=== PATIENT | female | born 1970 | race Two or more races ===

== ENCOUNTER 2023-07-30 10:47 | Emergency (ER) | payer SELFPAY ==
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
[2023-07-30 11:01] VITALS: BP 185/111; PULSE 108; O2SAT 98
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
[2023-07-30 11:10] VITALS: BP 199/116; PULSE 109; RESP 18; TEMP 37.1; O2SAT 95; BMI 54.3
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
--- NOTE | 2023-07-30 12:00 | PC.NURSE ---
back from CT- blood drawn. repeating BP. aox4. no distress noted. +CMS. talks well. collared.
[2023-07-30 12:02] LABS: MANUAL DIFF FLAG NO
[2023-07-30 12:04] LABS: Basophils Absolute Auto 0.1 X10*3/uL (0.0-0.2); Basophils Percent Auto 0.6 % (0-2); Eosinophils Percent Auto 0.5 % (0-4); Hematocrit 42.9 % (37.0-47.0); Hemoglobin 13.9 g/dl (12.0-16.0); Imm Gran Abs Auto 0.01 X10*3/uL (0.00-0.03); Imm Gran Pct Auto 0.1 % (0.0-0.4); Lymphocytes Absolute Auto 1.7 X10*3/uL (1.2-4.9); Lymphocytes Percent Auto 21.9 % (20-40); Mean Corpuscular HGB Conc 32.4 g/dl (31.0-35.0); Mean Corpuscular Hemoglobin 27.2 pg (27.0-33.0); Mean Platelet Volume 9.9 fL (9.4-12.3); Monocytes Absolute Auto 0.5 X10*3/uL (0.1-1.2); Monocytes Percent Auto 5.7 % (2-11); Neutrophils Absolute Auto 5.7 x10*3/uL (2.0-8.3); Neutrophils Percent Auto 71.2 % (45-73); Platelet Count 249 X10*3/uL (160-400); Red Blood Count 5.11 X10*6/uL (4.20-5.50); Red Cell Distribution Width 14.1 % (11.0-16.0); White Blood Count 7.9 X10*3/uL (4.8-10.8)
--- NOTE | 2023-07-30 12:10 | PC.NURSE ---
multiple machine attempts for repeat bp- manual complete- 190/110. childbirth and infant care teacher in room for update. pa given bp med list. pt resting, calm, coop. no visualized distress.
[2023-07-30 12:18] VITALS: BP 190/110; PULSE 100; RESP 18
[2023-07-30 12:19] LABS: Alanine Aminotransferase 23 U/L (0-31); Albumin Level 4.1 g/dL (3.5-5.0); Alkaline Phosphatase 95 U/L (39-117); Anion Gap 13 (12-20); Aspartate Amino Transferase 18 U/L (5-31); Bilirubin Total 0.7 mg/dL (0.0-1.0); Blood Urea Nitrogen 12 mg/dL (9-16); Calcium 8.9 mg/dL (8.4-10.2); Carbon Dioxide 21 mmol/L (22-29); Chloride 111 mmol/L (96-108); Creatinine Clr Calc Pharmacy 113.7; Estimated Glomerular Filt Rate > 60; Glucose Random 107 mg/dL (60-115); Lipase 13 U/L (8-78); Magnesium 2.1 mg/dL (1.6-2.6); Potassium 3.7 mmol/L (3.3-5.1); Sodium 141 mmol/L (135-145); Total Protein 7.9 g/dL (6.5-8.0)
--- NOTE | 2023-07-30 12:25 | PC.NURSE ---
called xray- will do xrays when collar removed per radiology. lorie ramos made aware
[2023-07-30] MEDS: amLODIPine Besylate 10 MG TABLET PO (12:30)
[2023-07-30] MEDS: hydroCHLOROthiazide 12.5 MG TABLET PO (12:31)
[2023-07-30] MEDS: Metoprolol Succinate ER 50 MG TAB.ER.24H PO (12:31)
[2023-07-30 12:32] VITALS: PULSE 96
[2023-07-30] MEDS: Acetaminophen 325 MG TABLET 975 MG PO (12:38)
[2023-07-30 14:00] VITALS: BP 170/110; PULSE 84; RESP 18; TEMP 36.6; O2SAT 99
[2023-07-30] MEDS: Morphine Sulfate Immed Release 15 MG TABLET PO (14:05)
[2023-07-30 16:00] VITALS: BP 120/70; PULSE 61; RESP 16; TEMP 36.6; O2SAT 99
--- NOTE | 2023-07-30 16:10 | PC.NURSE ---
manual 120/70; 114/68 machine. lorie ramos notified pt continues to be dizzy. +CMS. talking well. d/c'd by sanya isbell salesperson women's hats at bedside. VSS. manual 120/70; 114/68 machine. lorie ramos notified pt continues to be dizzy. +CMS. talking well.
== END 2023-07-30 16:24 | disposition home or self-care (01) ==
PROVIDERS: Physician Assistant Medical; Emergency Provider Emergency Medicine
DX: S50.12XA Contusion of left forearm, initial encounter (principal); M79.10 Myalgia, unspecified site; R51.9 Headache, unspecified; M54.2 Cervicalgia; R11.2 Nausea with vomiting, unspecified; M79.602 Pain in left arm; M25.562 Pain in left knee; R00.0 Tachycardia, unspecified; V43.52XA Car driver injured in collision with other type car in traffic accident, initial encounter; Y93.9 Activity, unspecified; Y92.410 Unspecified street and highway as the place of occurrence of the external cause; Y99.9 Unspecified external cause status; Z79.899 Other long term (current) drug therapy
CPT/HCPCS: 36415; 70450; 72125; 73080; 73090; 73110; 73130; 73564; 73590; 80053; 83690; 83735; 85025; 99284; 99285